=== PATIENT | male | born 2000 | race Caucasian/White ===

== ENCOUNTER 2022-09-26 02:45 | Emergency (ER) | payer OTHER ==
[~2022-09-26] VITALS: Ht 172.7 cm; Wt 77.3 kg
[2022-09-26 02:56] VITALS: BP 112/63; PULSE 63; TEMP 97.8
== END 2022-09-26 03:55 | disposition short-term general hospital (02) ==
LOC: COL.ER 02:45
DX: N50.812 Left testicular pain (principal); Z28.310 Unvaccinated for COVID-19